=== PATIENT | male | born 1940 | race Caucasian/White ===

== ENCOUNTER 2019-03-04 08:05 | Day surgery (SDC) | payer MEDICARE, BC ==
[~2019-03-04 08:05] MED LIST: Lactated Ringers 1,000 ML IV SCH; Sodium Chloride 0.9% 10 ML Syringe FLUSH PRN
[2019-03-04 08:23] VITALS: BP 136/76; PULSE 63
[2019-03-04] MEDS ORDERED: Midazolam 1 MG/ML 2 ML SDV ONE (08:27)
[2019-03-04] MEDS ORDERED: Propofol 200 MG/20 ML SDV ONE (08:28)
== END 2019-03-04 09:45 | disposition home or self-care (01) ==
LOC: LL.SDS 08:05
PROVIDERS: ATTEND Surgery
DX: N43.3 Hydrocele, unspecified (principal); I11.0 Hypertensive heart disease with heart failure; I50.9 Heart failure, unspecified; I25.10 Atherosclerotic heart disease of native coronary artery without angina pectoris; E78.5 Hyperlipidemia, unspecified; J44.9 Chronic obstructive pulmonary disease, unspecified; M25.561 Pain in right knee; N40.0 Benign prostatic hyperplasia without lower urinary tract symptoms; Z95.1 Presence of aortocoronary bypass graft; Z53.09 Procedure and treatment not carried out because of other contraindication; Z87.891 Personal history of nicotine dependence; Z79.82 Long term (current) use of aspirin; Z79.899 Other long term (current) drug therapy; Z98.890 Other specified postprocedural states
CPT/HCPCS: J7120

== ENCOUNTER → 2019-04-27 | Outpatient (CLI) | payer MEDICARE, BC ==
[2019-04-27 08:26] LABS: CHLORIDE,CL 106 mmol/L (98-107); SODIUM,NA 143 mmol/L (136-145)
== END ==
LOC: LL.LAB 08:00
PROVIDERS: ATTEND Nurse Practitioner Acute Care
DX: I50.22 Chronic systolic (congestive) heart failure (principal); Z95.5 Presence of coronary angioplasty implant and graft
CPT/HCPCS: 36415; 80048

== ENCOUNTER 2025-01-11 20:17 | Emergency (ER) | payer MEDICARE ==
[2025-01-11] MEDS ORDERED: Sodium Chloride 0.9% 10 ML Syringe FLUSH PRN (20:25)
[2025-01-11 20:53] LABS: BASOPHILS ABSOLUTE AUTO 0.01 K/uL (0.00-0.20); BASOPHILS PERCENT AUTO 0.1 % (0.0-2.0); EOSINOPHILS ABSOLUTE AUTO 0.02 K/uL (0.00-0.50); EOSINOPHILS PERCENT AUTO 0.1 % (0.0-5.0); IMMATURE GRAN ABSOLUTE AUTO 0.03 10^3/uL (0.00-0.04); IMMATURE GRAN PERCENT AUTO 0.2 % (0.0-0.4); LYMPHOCYTES ABSOLUTE AUTO 1.13 K/uL (0.50-3.50); LYMPHOCYTES PERCENT AUTO 7.6 % (10.0-50.0); MONOCYTES ABSOLUTE AUTO 1.19 K/uL (0.00-1.00); MONOCYTES PERCENT AUTO 8.0 % (2.0-14.0); NEUTROPHILS ABSOLUTE AUTO 12.51 K/uL (1.40-7.00); NEUTROPHILS PERCENT AUTO 84.0 % (45.0-80.0); PLATELET COUNT,PLT 259 K/uL (150-350); RED BLOOD CELL COUNT 5.29 M/uL (4.33-5.41); RED CELL DISTRIBUTION WIDTH 13.3 % (11.2-14.1); WHITE BLOOD CELL COUNT,WBC 14.9 K/uL (4.0-10.2)
[2025-01-11] MEDS: Ondansetron 4 MG/2 ML SDV IVPUSH ONE (21:10)
[2025-01-11 21:16] LABS: ALANINE AMINOTRANSFERASE,ALT 19 U/L (12-78); ASPARTATE AMNIOTRANSFERASE,AST 14 U/L (15-37); BILIRUBIN TOTAL 0.8 mg/dL (0.2-1.0); BLOOD UREA NITROGEN,BUN 33 mg/dL (7-18); CARBON DIOXIDE,CO2 23.3 mmol/L (21.0-32.0); CHLORIDE,CL 105 mmol/L (98-107); CREATININE 1.74 mg/dL (0.51-1.17); GLUCOSE RANDOM 132 mg/dL (70-99); POTASSIUM,K 4.1 mmol/L (3.5-5.1); PROTEIN TOTAL,TP 7.0 g/dL (6.4-8.2); SODIUM,NA 140 mmol/L (136-145)
[2025-01-11 21:17] LABS: ESTIMATED GFR 38 mL/min (>=60)
[2025-01-11] MEDS ORDERED: Naloxone 0.4 MG/ML SDV IVPUSH PRN (22:43)
[2025-01-11] MEDS: fentaNYL 50 MCG/ML SDV IVPUSH ONE (23:04)
[2025-01-11 23:41] LABS: APPEARANCE,URINE CLEAR; GLUCOSE,URINE >=1000 mg/dL (NEGATIVE); OCCULT BLOOD,URINE SMALL (NEGATIVE)
[2025-01-12 00:06] LABS: EPITHELIAL CELLS,URINE OCCASIONAL /LPF
[2025-01-12 00:30] VITALS: PULSE 60
[2025-01-12] MEDS: Ondansetron 4 MG/2 ML SDV IVPUSH ONE (01:50)
[2025-01-12] MEDS: Ondansetron 4 MG/2 ML SDV ONE (01:51)
[2025-01-12 03:28] VITALS: BP 132/76
== END 2025-01-12 03:17 ==
LOC: LL.ED 20:17
DX: K56.601 Complete intestinal obstruction, unspecified as to cause (principal); I11.0 Hypertensive heart disease with heart failure; I50.9 Heart failure, unspecified; E78.00 Pure hypercholesterolemia, unspecified; J44.9 Chronic obstructive pulmonary disease, unspecified; Z79.899 Other long term (current) drug therapy
CPT/HCPCS: 36415; 43752; 74018; 74022; 74176; 80053; 81001; 83605; 83690; 83735; 85025; 96361; 96374; 96375; 96376; 99284; 99285-25; A9270-GY; J2405; J3010; J7040